=== PATIENT | male | born 1995 | race Two or more races ===

== ENCOUNTER 2024-08-15 10:16 | Emergency (ER) | payer MEDICAID, SELFPAY ==
[2024-08-15 10:17] VITALS: BMI 21.4
[2024-08-15 10:57] VITALS: BP 150/102; PULSE 91; RESP 18; TEMP 36.8; O2SAT 97; BMI 17.2
--- NOTE | 2024-08-15 11:23 | XR_ITS ---
Examination: Hand, left fifth digit 3 views Technique: Hand AP, oblique, lateral 3 views fifth digit 3 views Date and time of exam: August 15, 2024, 1127 hrs. Indications: Laceration to the hand today with fifth digit pain Findings: Soft tissue swelling about the fifth digit No fracture. No opaque foreign body Impression: No opaque foreign body
--- NOTE | 2024-08-15 11:59 | EDNOTE_ITS ---
Upper Extremity Injury RME/HPI General Chief Complaint: Hand/Wrist Problems Stated Complaint: INJURY TO LEFT 5TH FINGER AT 1999 YESTERDAY Time Seen by Provider: 08/15/24 10:23 Arrival date/time: 08/15/24 10:16 RME / HPI RME / HPI narrative: 28-year-old male patient was brought in by family for evaluation regarding laceration to the left pinky finger. Incident happened yesterday about 8 PM patient sustained a laceration with a knife. Denies any other injury. Patient is able to bend and extend finger without any limitation. Tetanus vaccination is unknown. Related Data Previous Rx's ?Medication ?Instructions ?Recorded atorvastatin 10 mg tablet 10 mg PO QHS #30 tabs blood sugar diagnostic (Accu-Chek #100 ea 05/07/23 Guide test strips) blood-glucose meter (Accu-Chek #1 ea 05/07/23 Guide Glucose Meter) lancets 28 gauge (Comfort EZ #100 ea 05/07/23 Lancets) metformin 500 mg tablet 500 mg PO BID #60 tabs 05/06 pen needle, diabetic 31 gauge x #100 ea 05/07/23 1/4 (Comfort EZ Pen Branford) insulin syringe-needle U-100 0.3 #100 ea 05/10/23 mL 29 gauge x 1/2 (BD Insulin Syringe) blood-glucose sensor (FreeStyle #1 ea 05/15/23 Caterina 3 Sensor device) blood-glucose sensor (FreeStyle #1 ea 05/22/23 Caterina 3 Sensor device) insulin glargine 100 unit/mL (3 50 unit (0.5 mL) subcu t QPM #15 mL 05/29/23 mL) subcutaneous pen insulin lispro 100 unit/mL 10 unit (0.1 mL) subcut TID #15 mL 05/29/23 subcutaneous pen (Humalog KwikPen (U-100) Insulin) cephalexin 500 mg capsule 500 mg PO Q8H 7 days #21 cap s 08/15/24 ibuprofen 600 mg tablet 600 mg PO Q8H PRN pain #30 t abs 08/15/24 Allergies Allergy/AdvReac Type Severity Reaction Status Date / Time No Known Allergies Allergy Verified 08/15/24 10:20 Review of Systems Review of Systems Narrative Review of Systems: Review of system reviewed and within normal limits except mentioned in HPI ED Exam Narrative Physical exam: VITAL SIGNS: Reviewed. GENERAL APPEARANCE: Alert and interactive, follows commands, no acute distress, HEAD AND FACE: Non-traumatic. ENT: PERRL, pink conjunctivitis, eyelid no trauma, Mucous membrane moist. NECK: Supple, nontender, no nuchal rigidity. CHEST: No tenderness, no crepitus, no paradoxical movement, no retractions. LUNGS: Clear, well ventilated, symmetric, no rales, no wheezing, no ronchi, no stridor, good breath sounds bilaterally. HEART: Regular rate, regular rhythm, no murmur, no gallops. ABDOMEN: Soft, positive bowel sounds, nondistended, no guarding, nontender, no rebound, no masses, RECTAL: Deferred. GENITAL: Deferred. NEUROLOGICAL: Gross motor function intact sensory function intact, Appropriate for age. MUSCULOSKELETAL: low back nontender, full range of motion. EXTREMITIES: +1 centimeter laceration left pinky fingertip palmar aspect, full range of motion. SKIN: Color pink, dry, no rash, no lacerations, no abrasions, no contusions. LYMPHATICS: Deferred. Course Quality Measures none Orders Category Date Time Status Cleanse Wound NEEDED Care 08/15/24 11:05 Active XR hand LT 2V Stat Exams 08/15/24 11:23 Completed cephALEXin [Keflex] Med 08/15/24 11:58 Once 500 mg PO X1 ONE Vital Signs Vital signs: Vital Signs Temperature 98.2 F 08/15/24 10:57 Pulse Rate 91 08/15/24 10:57 Respiratory Rate 18 08/15/24 10:57 Blood Pressure 150/102 H 08/15/24 10:57 Pulse Oximetry (%) 97 08/15/24 10:57 Oxygen Delivery Method Room Air 08/15/24 10:57 Extremity Injury MDM Narrative MDM Narrative:: 28-year-old male patient was brought in by family for evaluation regarding laceration to the left pinky finger. Incident happened yesterday about 8 PM patient sustained a laceration with a knife. Denies any other injury. Patient is able to bend and extend finger without any limitation. Tetanus vaccination is unknown. Repair and suturing was done by me see procedure note X-ray of the finger came back unremarkable. Patient received Keflex and Boostrix Patient data External records reviewed:: None Clinical information provided by:: patient and family Social determinants that could affect healthcare access:: none Patient has the following chronic illnesses:: diabetes mellitus How is presenting disease/condition affected by chronic disease/condition?: uneffected by Evaluation data The following diagnostics were reviewed and interpreted by me:: radiology exam(s) Lab and/or radiology exams considered but not ordered:: None Interpretation Summary: X-ray of finger came back unremarkable. Medications / Prescriptions Medications or Prescriptions considered but not ordered:: None Medication administrations:: Keflex and Boostrix Consultations Consultation(s) initiated? (list below): No Diagnosis Upper Extremity Injury Differential Diagnosis: other (Finger laceration, skin avulsion contusion) Most likely diagnosis given after review of the tests above:: Finger laceration Admission Indicated Admission indicated?: not indicated Admission Request Was there a request for admission?: No Disposition Plan Disposition Plan: Discharge Discharge Attestation Discharge Attestation: The patient and all family members were given an opportunity to ask questions and understood the discharge instructions. Discharge instructions specifically effects, indications for sooner follow up or return to the emergency department, and the expected course of current diagnosis. Patient condition: Stable Discharge Plan Plan Patient Disposition: HOME (Self Care) Discharge Disposition comment: Stable Prescriptions/Referrals Prescriptions/Med Rec: New cephalexin 500 mg capsule 500 mg PO Q8H 7 Days Qty: 21 0RF ibuprofen 600 mg tablet 600 mg PO Q8H PRN (Reason: pain) Qty: 30 0RF No Action (DME) FreeStyle Caterina 3 Sensor Device See Rx Instructions .Route Qty: 1 3RF Rx Instructions: As directed (DME) insulin syringe-needle U-100 [BD Insulin Syringe] 0.3 mL 29 gauge x 1/2 syringe See Rx Instructions .Route Qty: 100 1RF Rx Instructions: As directed (DME) FreeStyle Caterina 3 Sensor Device See Rx Instructions .Route Qty: 1 3RF Rx Instructions: As directed metformin 500 mg tablet 500 mg PO BID Qty: 60 3RF atorvastatin 10 mg tablet 10 mg PO QHS Qty: 30 3RF (DME) blood-glucose meter [Accu-Chek Guide Glucose Meter] Misc See Rx Instructions .Route Qty: 1 0RF Rx Instructions: As directed (DME) lancets [Comfort EZ Lancets] 28 gauge misc See Rx Instructions .Route Qty: 100 3RF Rx Instructions: As directed (DME) Accu-Chek Guide test strips Strip See Rx Instructions .Route Qty: 100 3RF Rx Instructions: As directed (DME) pen needle, diabetic [Comfort EZ Pen [place]] 31 gauge x 1/4 needle See Rx Instructions .Route Qty: 100 3RF Rx Instructions: As directed insulin glargine 100 unit/mL (3 mL) insulin pen 50 unit subcut QPM Qty: 15 3RF insulin lispro [Humalog KwikPen Insulin] 100 unit/mL insulin pen 10 unit subcut TID Qty: 15 3RF Referrals: No Primary/Family,Physician [Primary Care Provider] - In 1 week Problem List Clinical Impression: Finger laceration Patient/Caregiver Discharge Instructions Discharge Activity: activity as tolerated Education Materials: ED Laceration: All Closures Additional Instructions: Thank you for the opportunity for serving you today. You are stable for discharged . You are advised to: Follow-up with your PCP in 1 to 2 days Return to ED for worsening of symptoms Increase oral fluids Take medication as prescribed Daily dressing with Neosporin as needed For removal of sutures in 7 days Print Language: Turkmen Stand Alone Forms: Terrie Award Info., Patient Portal Info Letter PA/ENGINEERING PSYCHOLOGIST Supervising Physician PA/ENGINEERING PSYCHOLOGIST Supervising Physician: Kostas Scott MD
[2024-08-15] MEDS: DIPHTH,PERTUSS(ACELL),TET VAC 0.5 ML SYR- ADULT IMi (12:08)
[2024-08-15] MEDS: cephALEXin 250 MG CAPSULE 500 MG PO (12:08)
[2024-08-15 12:16] VITALS: BP 115/88; PULSE 77; RESP 16; TEMP 36.6; O2SAT 99
== END 2024-08-15 12:17 | disposition home or self-care (01) ==
PROVIDERS: Emergency Provider Emergency Medicine; PCP Family Medicine
DX: S61.217A Laceration without foreign body of left little finger without damage to nail, initial encounter (principal); W26.0XXA Contact with knife, initial encounter; Z23 Encounter for immunization
CPT/HCPCS: 12001; 73120; 90471; 90715; 99283; A9270